=== PATIENT | male | born 1985 | race Caucasian/White ===

== ENCOUNTER 2019-07-31 14:54 | Emergency (ER) | payer OTHER ==
[2019-07-31] MEDS ORDERED: HYDROcodone/Acetaminophen 10/325 mg Tablet ONE (16:15)
== END 2019-07-31 16:21 ==
LOC: ERS 14:54 → EEVIPCON 14:54 → ERS 16:21
DX: S59.911A Unspecified injury of right forearm, initial encounter (principal); Z87.891 Personal history of nicotine dependence; X50.1XXA Overexertion from prolonged static or awkward postures, initial encounter
CPT/HCPCS: 99283